=== PATIENT | female | born 1980 | race Caucasian/White ===

== ENCOUNTER 2019-12-07 09:55 | Outpatient (REF) | payer BC, SELFPAY ==
--- NOTE | 2019-12-07 08:45 | PAPFT_PTH ---
PATIENT: Mary Grace Roberts LOC: [facility] U#:[id number] AGE/SX: 39/F ROOM: RE12/07/[address]: Yumi Miranda NP : 1980 BED: DIS: 12/07/2019 SPEC #: [id number] RECD: 12/07/19 12:58 STATUS: DALEEunice REQ #: [id number] JEOVANY: 12/07/19 08:[address]: Yumi Miranda NP DEPT: [facility] Cytology RECD BY: Teresa Weber ENTERED: 12/07/19 12:58 SP TYPE: PAPFT OTHR DR: Gisell Moran Tissues: 1 - CX/ENDOCX FOR PAP SMEARS Procedures: PAP THIN PREP/UVM Screening HPV DNA PROBE Comments: [id number]
== END 2019-12-07 10:15 ==
LOC: LBN 09:55
PROVIDERS: PCP Physician Assistant Medical; Visit Provider Nurse Practitioner Women's Health
DX: Z11.51 Encounter for screening for human papillomavirus (HPV) (principal); Z12.4 Encounter for screening for malignant neoplasm of cervix
CPT/HCPCS: 88142; 87624

== ENCOUNTER → 2022-04-04 02:48 | Outpatient (CLI) | payer BC, SELFPAY ==
--- NOTE | 2022-04-04 08:24 | DI.MAMMO_ITS ---
Exam(s) MAMMO SCREENING EXAM: MAMMO SCREENING CLINICAL HISTORY: screening. TECHNIQUE: Bilateral full field digital CC and MLO mammographic images were obtained with 3D tomosyn thesis and utilizing computer aided detection (CAD). COMPARISON: Baseline FINDINGS: There are no spiculated masses nor malignant appearing microcalcification groups. There is no significant architectural distortion nor skin thickening-retraction. IMPRESSION: No radiographic evidence of malignancy. BI-RADS Category 1 - Negative Breast Density - Category B - Scattered areas of fibroglandular density Breast density Category C or D implies that the patient has dense breast tissue. Dense breast tissue can make it harder to find cancer on a mammogram. Dense breast tissue is also associated with an incr eased risk of breast cancer. This information about the result of the mammogram report was provided to the patient to raise their awareness. Use this report when you speak with the patient about their risks for breast cancer, which includes their family history. At that time, you may recommend additional screening tests (Ultrasoun d or MRI) as these tests may add significant information. A negative radiographic report should not delay biopsy if a dominant or clinically suspicious mass is present. Up to ten percent of cancers are not identified on mammography. A negative report may reinforce clinical impression. Adenosis and dense breasts may obscure an underlying neoplasm. False positive reports average 6 to 10%. Patient will receive a letter notifying them of these results.
== END ==
PROVIDERS: PCP Physician Assistant Medical; Visit Provider Nurse Practitioner Women's Health
DX: Z12.31 Encounter for screening mammogram for malignant neoplasm of breast (principal)
CPT/HCPCS: 77063; 77067

== ENCOUNTER 2023-02-19 14:51 | Outpatient (REF) | payer BC, SELFPAY ==
--- NOTE | 2023-02-19 14:00 | PAPFT_PTH ---
PATIENT: Mary Grace Roberts LOC: [facility] U#:[id number] AGE/SX: 43/F ROOM: RE02/19/[address]: Yumi Miranda NP : 1980 BED: DIS: 02/19/2023 SPEC #: [id number] RECD: 02/19/23 17:56 STATUS: CARMINE REYvonne #: [id number] JEOVANY: 02/19/23 14:[address]: Yumi Miranda NP DEPT: [facility] Cytology RECD BY: Teresa Weber ENTERED: 02/19/23 17:57 SP TYPE: PAPFT OTHR DR: Gisell Moran Tissues: 1 - CX/ENDOCX FOR PAP SMEARS Procedures: PAP THIN PREP/UVM Screening HPV DNA PROBE Comments: [id number]
== END 2023-02-19 14:52 | disposition home or self-care (01) ==
LOC: LBN 14:51
PROVIDERS: PCP Physician Assistant Medical; Visit Provider Nurse Practitioner Women's Health
DX: Z12.4 Encounter for screening for malignant neoplasm of cervix (principal); Z11.51 Encounter for screening for human papillomavirus (HPV)
CPT/HCPCS: 88142; 87624

== ENCOUNTER → 2023-04-05 00:18 | Outpatient (CLI) | payer OTHER, SELFPAY ==
--- NOTE | 2023-04-05 14:45 | DI.MAMMO_ITS ---
Exam(s) MAMMO SCREENING EXAM: MAMMO SCREENING CLINICAL HISTORY: screening TECHNIQUE: Bilateral full field digital CC and MLO mammographic images were obtained with 3D tomosyn thesis and utilizing computer aided detection (CAD). COMPARISON: Available for comparison. FINDINGS: Masses/Architectural Distortion: None seen. Microcalcifications: No suspicious pleomorphic-type are seen. Skin Thickening/Nipple Retraction: None. IMPRESSION: 1. No significant interval change with no specific features of malignancy noted. 2. Unless there is more urgent need, screening mammography is recommended, as per [employer] guidelines. BI-RADS Category 1 - Negative Breast Density - Category B - Scattered areas of fibroglandular density Breast density category C or D implies that the patient has dense breast tissue. Dense breast tissue is very common and is not abnormal but dense breast tissue can make it harder to find cancer on a ma mmogram. Also, dense breast tissue may increase their breast cancer risk. This information about the result of the mammogram report was provided to the patient to raise their awareness. Use this report when you speak with the patient about their risks for breast cancer, which includes their family hist ory. At that time, you may recommend for more screening tests (Ultrasound or MRI) as they might be us eful based on their risk. A negative radiographic report should not delay biopsy if a dominant or clinically suspicious mass is present. Up to ten percent of cancers are not identified on mammography. A negative report may reinforce clinical impression. Adenosis and dense breasts may obscure an underlying neoplasm. False positive reports average 6 to 10%. Patient will receive a letter notifying them of these results.
== END ==
PROVIDERS: PCP Physician Assistant Medical; Visit Provider Nurse Practitioner Women's Health
DX: Z12.31 Encounter for screening mammogram for malignant neoplasm of breast (principal)
CPT/HCPCS: 77063; 77067

== ENCOUNTER 2023-12-11 08:24 | Emergency (ER) | payer OTHER, SELFPAY ==
[2023-12-11 08:36] VITALS: BP 134/86; PULSE 78; RESP 16; TEMP 36.8; O2SAT 98
--- NOTE | 2023-12-11 08:58 | W.ED.GENAD ---
Discharge Plan Disposition Patient Disposition: Home Condition: Stable Discharge Details Clinical Impression: Degenerative disc disease, lumbar Primary Care Provider: Gisell Moran ED Provider: Hallie Huerta Home Meds and New Rx's Prescriptions: New prednisone 20 mg tablet 40 mg PO DAILY 5 Days Qty: 10 0RF Rx Instructions: Take 2 tablets daily for the next 5 days cyclobenzaprine 10 mg tablet 10 mg PO TID PRN (Reason: muscle spasm) Qty: 10 0RF lidocaine 5 % adhesive patch,medicated 1 patch topical DAILY Qty: 15 0RF Rx Instructions: leave on most painful area for up to 12 hrs No Action norethindrone-e.estradiol-iron [[place] Fe 1.5/30 (28)] 1.5 mg-30 mcg (21)/75 mg (7) tablet See Rx Instructions .ROUTE .COMPLEX Qty: 84 0RF Dose Instruction: TAKE 1 TABLET BY MOUTH DAILY, TAKE ACTIVE PILLS CONTINUOUSLY WITH NO BREAKS Rx Instructions: TAKE 1 TABLET BY MOUTH DAILY, TAKE ACTIVE PILLS CONTINUOUSLY WITH NO BREAKS Discharge Instructions Instructions: Back Exercises, Degenerative Disc Disease ED Additional Instructions: At this time x-rays show that you have some degenerative disc disease and mild disc narrowing at L4-L5. This is very common. This may be what is causing your pain. Please take the medications as prescribed. The muscle relaxer will make you sleepy. Please take Tylenol or Ibuprofen with food every 4-6 hours as needed for pain and swelling. Follow up with primary care provider in 3-5 days. Return to ED sooner if any worsening radiation of pain, loss of bowel or bladder control, numbness or tingling around her groin or rectal area feeling as if you need to urinate or have a bowel movement but cannot weakness in your legs or concerns. Stand Alone Forms: Physical Therapy Referral Referrals: Gisell Moran [Primary Care Provider] - 1 week HPI General Mode of arrival: ambulatory. Date/Time Provider Initiated Documentation: 12/11/23 08:30. Limitations to Documentation: no limitations. Information obtained by: patient, RN notes reviewed and old records reviewed. HPI Narrative: 43-year-old female here with left lower lumbar pain which she reports has been intermittent for quite some time. She states that last night began worsening with some radiation around her left pelvis. Denies any loss of bowel or bladder control, denies any dysuria or problems urinating. Denies any saddle anesthesia or recent injuries or heavy lifting. Pain is worse with ambulation and standing. She has not had any recent imaging done. Did not take any medications prior to arrival. Related Data Home Medications ?Medication ?Instructions ?Recorded ?Confirmed norethindrone 1.5 mg-ethinyl See Rx Instructions .Route 03/11/23 12/11/23 estradiol 30 mcg(21)/iron 75 mg(7) .COMPLEX #84 tabs tablet (Carson Fe 1.5/30 (28)) cyclobenzaprine 10 mg tablet 10 mg PO TID PRN muscle spasm #10 12/11/23 tabs lidocaine 5 % topical patch 1 patch topical DAILY #15 ea 12/11/23 prednisone 20 mg tablet 40 mg (2 x 20 mg) PO DAILY DJD 5 12/11/23 days #10 tabs Previous Rx's ?Medication ?Instructions ?Recorded norethindrone 1.5 mg-ethinyl See Rx Instructions .Route 03/11/23 estradiol 30 mcg(21)/iron 75 mg(7) .COMPLEX #84 tabs tablet (Carson Fe 1.5/30 (28)) cyclobenzaprine 10 mg tablet 10 mg PO TID PRN muscle spasm #10 12/11/23 tabs lidocaine 5 % topical patch 1 patch topical DAILY #15 ea 12/11/23 prednisone 20 mg tablet 40 mg (2 x 20 mg) PO DAILY DJD 5 12/11/23 days #10 tabs Allergies Allergy/AdvReac Type Severity Reaction Status Date / Time No Known Allergies Allergy Verified 12/11/23 08:35 General Stated Complaint: Nk/Back Pain PATRICIA: 4 Review of Systems All systems reviewed & are unremarkable except as noted in HPI and below Musculoskeletal Musculoskeletal: Reports as per HPI and Reports back pain Exam Const General: cooperative, healthy appearing, well developed and well groomed Nutritional Appearance: average body habitus Orientation: alert, awake and oriented x3 Resp Effort & Inspection: normal respiratory effort and able to speak in complete sentences Cardio Rate: regular rate Rhythm: regular rhythm Heart Sounds: S1 normal and S2 normal Back/Spine/Pelvis Back: no CVA tenderness Cervical Spine: normal cervical lordosis Thoracic/Lumbar Spine: thoracic and lumbar spine normal to inspection, No mass, paraspinal tenderness, No scoliosis, No lumbar spinal tenderness and straight leg raise positive Pelvis: no pain with anterior-posterior compression and no buttock ecchymosis Sacroiliac joints: on the left tender to palpation Course Vital Signs Vital signs: Vital Signs Temperature 36.8 C 12/11/23 08:36 Pulse 78 12/11/23 08:36 Respiratory Rate 16 12/11/23 08:36 Blood Pressure 134/86 12/11/23 08:36 Pulse Oximetry 98 12/11/23 08:36 Temperature 36.8 C 12/11/23 08:36 Temperature Source Skin 12/11/23 08:36 Pulse 78 12/11/23 08:36 Respiratory Rate 16 12/11/23 08:36 Respiratory Effort Normal, Non-Labored 12/11/23 08:38 Blood Pressure 134/86 12/11/23 08:36 Blood Pressure Position Sitting 12/11/23 08:36 Pulse Oximetry 98 12/11/23 08:36 Oxygen Delivery Method Room Air 12/11/23 08:36 Oxygen Flow Rate 0 12/11/23 08:36 Pain Level 10 12/11/23 08:38 Medical Decision Making 43-year-old female here with left lower lumbar pain which she reports has been intermittent for quite some time. She states that last night began worsening with some radiation around her left pelvis. Denies any loss of bowel or bladder control, denies any dysuria or problems urinating. Denies any saddle anesthesia or recent injuries or heavy lifting. Pain is worse with ambulation and standing. She has not had any recent imaging done. Did not take any medications prior to arrival. X-ray of L-spine and pelvis ordered, lidocaine patch, Flexeril gram Tylenol urinalysis urine test Discussed imaging with patient who verbalized understanding. Will give 40 mg prednisone and referral to physical therapy. She reports that after the medications given she feels much better. This text was generated using [employer] dictation system, please disregard any oddities of phrase or misspellings. Imaging Data Radiologic Study: Imaging: X-Ray Radiologist's impression: XR LUMBAR SPINE COMPLETE EXAM: XR LUMBAR SPINE COMPLETE CLINICAL HISTORY: lower back pain. TECHNIQUE: 2D digital imaging was performed. COMPARISON: No exams were available for comparison FINDINGS: Five views No evidence of fracture, listhesis, nor pars defects. There is mild disc space narrowing at L4-5 level. The other disc spaces exhibit normal height, including L5-S1. Facet joints appear unremarkable . No scoliosis evident. No osseous lesions. IMPRESSION: There is mild disc space narrowing at L4-5 level indicating element of degenerative disc disease. If clinically indicated further study with MRI can be performed. Quality:SDOH Health Related Social Needs: Health related social needs inadequate housing PFSH All Active Problems (Updated 12/11/23 @ 10:00 by Hallie Huerta NP) Degenerative disc disease, lumbar (Acute) Vulvovaginal condyloma (Acute) Single lesion on R labia, treated with TCA 02/19/23 Uses oral contraceptives (Acute) Depression (Chronic) Worse in luteal phase of menses, will trial OCPs for management Family History Mother Hyperlipidemia Social History Smoking/Tobacco Use Status: Never Second Hand Exposure: No Smoking risk assessment performed?: Yes Alcohol Intake: current Alcohol Intake frequency: 0-2 drinks per day Alcohol type: beer, wine and hard liquor Drug use: Never Substance use type: does not use current occupation: mortgage or loan underwriter Sexually active: Yes Current gender identity: female What type of physical activity do you participate in: regular exercise Frequency: 3-4 times per week Seatbelt use: always Helmet use: Yes Drive intox or ride w/intox route sales delivery driver: No Do you feel safe at home: Yes Do you feel safe in your relationship?: Yes Female Reproductive History Menstrual control method: other ( with vasectomy) History History 3 Para 3 Hx # Term Pregnancies Multiple births Hx # Pregnancies Ectopic pregnancies AB induced Hx Number of Living Children AB spontaneous PAWSS Have you Been Recently Intoxicated or Drunk Within the Last 30 days?: No Have you Ever Experienced Previous Episodes of Alcohol Withdrawal?: No Have you ever Experienced Withdrawal Seizures?: No Have you ever Experienced Delirium Tremens(DT)s?: No Have you ever undergone Alcohol Rehabilitation Treatment (i.e, inpt ot outpatient treatment programs)?: No Have you ever Experienced Blackouts?: No Have you ever Combined Alcohol with other Downers within the last 90 days?: No Have you ever Combined Alcohol with any other Substance of Abuse during the last 90 days?: No Positive Blood Alcohol level on Presentation? [PCS.BAL]: No Evidence of Increased Autonomic Activity (i.e. HR>120, tremor, sweating, agitation, nausea)?: No Result: 0
[2023-12-11] MEDS: Acetaminophen 500 MG TAB 1000 MG PO (09:16)
[2023-12-11] MEDS: Lidocaine 5% Patch 1 PATCH TP (09:16)
[2023-12-11] MEDS: Cyclobenzaprine 10 MG TAB PO (09:16)
[2023-12-11 09:21] LABS: Bilirubin Negative (Negative); Blood Negative (Negative); Clarity Clear (Clear); Glucose Negative (Negative); Ketones Negative (Negative); Leukocyte Esterase Negative (Negative); Nitrite Negative (Negative); Urobilinogen 0.2 mg/dL (Up to 0.2); pH 7.5 (5-8)
--- NOTE | 2023-12-11 09:37 | DI.RAD_ITS ---
Exam(s) XR LUMBAR SPINE COMPLETE EXAM: XR LUMBAR SPINE COMPLETE CLINICAL HISTORY: lower back pain. TECHNIQUE: 2D digital imaging was performed. COMPARISON: No exams were available for comparison FINDINGS: Five views No evidence of fracture, listhesis, nor pars defects. There is mild disc space narrowing at L4-5 lev el. The other disc spaces exhibit normal height, including L5-S1. Facet joints appear unremarkable . No scoliosis evident. No osseous lesions. IMPRESSION: There is mild disc space narrowing at L4-5 level indicating element of degenerative disc disease. If clinically indicated further study with MRI can be performed. DATA REPOSITORY: RADIATION DOSE DELIVERED:
--- NOTE | 2023-12-11 09:37 | DI.RAD_ITS ---
Exam(s) XR PELVIS AP EXAM: XR PELVIS AP CLINICAL HISTORY: Left side pain. TECHNIQUE: 2D digital imaging was performed. COMPARISON: No exams were available for comparison FINDINGS: Single AP view of the pelvis No evidence of pelvic nor hip fractures. No hip joint space narrowing. No evidence of vascular necr osis of the hips. Sacroiliac joints appear unremarkable. Pelvic bone density is normal. No osseous lesions. Phleboliths are noted in both sides of the pelvis. IMPRESSION: No significant osseous findings in the pelvis and hips. DATA REPOSITORY: RADIATION DOSE DELIVERED:
[2023-12-11 10:09] VITALS: PULSE 61; RESP 18; O2SAT 99
== END 2023-12-11 10:10 | disposition home or self-care (01) ==
PROVIDERS: Emergency Provider Registered Nurse Emergency; PCP Physician Assistant Medical
DX: M51.36 Other intervertebral disc degeneration, lumbar region (principal)
CPT/HCPCS: 81025; 99284; 72110; 72170; 81003; 99283

== ENCOUNTER 2024-04-27 01:37 | Outpatient (CLI) | payer OTHER, SELFPAY ==
--- NOTE | 2024-04-27 15:15 | DI.MAMMO_ITS ---
Exam(s) MAMMO SCREENING EXAM: MAMMO SCREENING CLINICAL HISTORY: screening TECHNIQUE: Mammograms were interpreted according to the usual protocol including computer analysis w [employer] CAD system, tomosynthesis and C-view imaging. COMPARISON: 2021 and 2022 FINDINGS: The breasts are composed of scattered fibroglandular densities, Breast Density category B. No suspicious masses or suspicious microcalcifications are seen. No skin thickening or abnormal axillary lymph nodes are seen. There has been no significant change from prior exams. IMPRESSION: BI-RADS Category 1, Negative mammogram Yearly screening mammography is recommended. Breast Density - Category B, scattered fibroglandular densities. A negative radiographic report should not delay biopsy if a dominant or clinically suspicious mass is present. Up to ten percent of cancers are not identified on mammography. A negative report may reinforce clinical impression. Adenosis and dense breasts may obscure an underlying neoplasm. False positive reports average 6 to 10%. Patient will receive a letter notifying them of these results.
== END 2024-04-27 01:57 ==
PROVIDERS: PCP Physician Assistant Medical; Visit Provider Nurse Practitioner Women's Health
DX: Z12.31 Encounter for screening mammogram for malignant neoplasm of breast (principal); R92.323 Mammographic fibroglandular density, bilateral breasts
CPT/HCPCS: 77063; 77067

== ENCOUNTER 2024-11-11 18:56 | Outpatient (REF) | payer OTHER, SELFPAY ==
[2024-11-11 21:30] LABS: HCT 37.5 % (36.0-46.0); HGB 12.5 g/dL (11.2-15.7); MCH 29.5 pg (27.0-33.0); MCHC 33.3 % (32.0-36.0); MCV 88 fL (80-95); MPV 10.4 fL (8.0-11.0); Platelet Count 321 10^3/uL (130-400); RBC 4.24 10^6/uL (3.93-5.22); RDW 12.7 % (11.7-14.6); RDW-SD 41.3 fL; WBC 7.01 10^3/uL (4.4-10.8)
[2024-11-11 22:03] LABS: ALT 30 U/L (14-59); AST 22 U/L (15-37); Albumin 3.4 g/dL (3.4-5.0); Alkaline Phosphatase 61 U/L (46-116); Anion Gap 10.3 mmol/L (3-11); BUN 14 mg/dL (7-18); Bilirubin, Total 0.3 mg/dL (0.2-1.0); CO2 22.7 mmol/L (21.0-32.0); Calcium 8.6 mg/dL (8.5-10.1); Calculated LDL 142 mg/dL (<100); Chloride 106 mmol/L (98-107); Cholesterol 212 mg/dL (<200); Estimated GFR 110.67 (mL/min/1.73m2); Glucose 90 mg/dL (74-106); HDL Cholesterol 42 mg/dL (>or=50); Potassium 3.6 mmol/L (3.5-5.1); Sodium 139 mmol/L (136-145); Total Protein 7.0 g/dL (6.4-8.2); Triglyceride 141 mg/dL (<150)
== END 2024-11-11 18:57 | disposition home or self-care (01) ==
LOC: NCHCN 18:56
PROVIDERS: PCP Internal Medicine; Visit Provider Internal Medicine
DX: E78.2 Mixed hyperlipidemia (principal)
CPT/HCPCS: 80053; 80061; 85027

== ENCOUNTER → 2025-05-04 08:07 | Outpatient (CLI) | payer OTHER, SELFPAY ==
--- NOTE | 2025-05-04 08:25 | DI.MAMMO_ITS ---
Exam(s) MAMMO SCREENING EXAM: MAMMO SCREENING CLINICAL HISTORY: screening,z12.39 TECHNIQUE: Mammograms were interpreted according to the usual protocol including computer analysis with CAD system, tomosynthesis and C-view imaging. COMPARISON: 2021 through 2023 FINDINGS: The breasts are composed of scattered fibroglandular densities, Breast Density category B. No suspicious masses or suspicious microcalcifications are seen. No skin thickening or abnormal axillary lymph nodes are seen. There has been no significant change from prior exams. IMPRESSION: BI-RADS Category 1, Negative mammogram Yearly screening mammography is recommended. Breast Density - Category B - There are scattered areas of fibroglandular density. Breast density Category C or D implies that the patient has dense breast tissue. Dense breast tissue can make it harder to find cancer on a mammogram. Dense breast tissue is also associated with an increased risk of breast cancer. This information about the result of the mammogram report was provided to the patient to raise their awareness. Use this report when you speak with the patient about their risks for breast cancer, which includes their family history. At that time, you may recommend additional screening tests (Ultrasound or MRI) as these tests may add significant information. A negative radiographic report should not delay biopsy if a dominant or clinically suspicious mass is present. Up to ten percent of cancers are not identified on mammography. A negative report may reinforce clinical impression. Adenosis and dense breasts may obscure an underlying neoplasm. False positive reports average 6 to 10%. Patient will receive a letter notifying them of these results.
== END ==
LOC: DI 08:07
PROVIDERS: PCP Internal Medicine; Visit Provider Nurse Practitioner Women's Health
DX: Z12.31 Encounter for screening mammogram for malignant neoplasm of breast (principal); R92.323 Mammographic fibroglandular density, bilateral breasts
CPT/HCPCS: 77063; 77067